=== PATIENT | female | born 1955 | race Caucasian/White ===

== ENCOUNTER 2017-03-08 09:40 | Emergency (ER) | payer OTHER ==
[~2017-03-08] VITALS: Ht 170.2 cm; Wt 44.5 kg
[~2017-03-08 09:40] MED LIST: TRAM-492 PO
[2017-03-08 09:42] VITALS: BP 131/70; PULSE 98; RESP 16; TEMP 98; O2SAT 97
--- NOTE | 2017-03-08 10:26 | PD ---
HPI . Need for injection Chief Complaint: Medical Clearance Time Seen by Provider: 10:07 Travel History International Travel<30 days: No Contact w/Intl Traveler<30days: No Traveled to known affect area: No History of Present Illness HPI This is a chemotherapy patient. Last chemotherapy was Thursday, 2 days ago. She has a device placed at the end of chemotherapy which will automatically inject her with Neulasta 24 hours after chemotherapy is complete. Unfortunately, this device and dislodged before it could provide the injection. She comes in to us today requesting a Neulasta shot. History Past Medical History : 1 Para: 1 Social History Alcohol Use: Yes (3 [employer], pt currently denies) Tobacco Use: Yes (1/2ppd) Allergies-Medications (Allergen,Severity, Reaction): Coded Allergies: No Known Allergies (Unverified , 03/08/17) Reported Meds & Prescriptions Reported Meds & Active Scripts Active Reported Tramadol Hydrochloride (Tramadol HCl) 50 Mg Tab 50 Mg PO Q3HR PRN Review of Systems General / Constitutional: No: Fever, Chills Physical Exam Narrative GENERAL: Awake and alert and in no acute distress. SKIN: Warm and dry. CARDIOVASCULAR: Regular rate and rhythm. RESPIRATORY: No accessory muscle use. MUSCULOSKELETAL: No obvious deformities. No edema. NEUROLOGICAL: Awake and alert. No obvious cranial nerve deficits. Motor grossly within normal limits. Normal speech. PSYCHIATRIC: Appropriate mood and affect; insight and judgment normal. Data Data Last Documented VS Vital Signs Date Time Temp Pulse Resp B/P Pulse Ox O2 Delivery O2 Flow Rate FiO2 03/08/17 09:42 98.0 98 16 131/70 97 MDM Medical Decision Making Medical Screen Exam Complete: Yes Emergency Medical Condition: Yes Differential Diagnosis There is no differential diagnosis for this patient Narrative Course Patient presents requesting a Neulasta injection. The pharmacist is trying to determine whether or not this is possible. I have queried up-to-date. It appears that she actually has a window of about 5 days now when she can get the injection. The patient states that she was told by the oncologist that it had begun within 48 hours. However, up-to-date give us a window of greater than 24 hours post chemotherapy -- greater than 14 days before the next chemotherapy. The pharmacist reports that the medication is available. Diagnosis Primary Impression: Chemotherapy follow-up examination Disposition: 01 DISCHARGE HOME Condition: Stable Rhonda Estevez MD Mar 08, 2017 10:26
[2017-03-08] MEDS ORDERED: PEGFILGRASTIM 6 MG/0.6 ML SQ ONE (12:00)
[2017-04-29] MEDS ORDERED: OXYC1TAB63 PO (10:08)
== END 2017-03-08 11:12 | disposition home or self-care (01) ==
LOC: NEPD 09:40
DX: T85.628A Displacement of other specified internal prosthetic devices, implants and grafts, initial encounter (principal); Y84.9 Medical procedure, unspecified as the cause of abnormal reaction of the patient, or of later complication, without mention of misadventure at the time of the procedure
CPT/HCPCS: 96372; 99283; J2505